=== PATIENT | male | born 1990 | race Caucasian/White ===

== ENCOUNTER 2018-04-04 19:57 | Emergency (ER) | payer OTHER ==
[~2018-04-04] VITALS: Ht 177.8 cm; Wt 96.2 kg
== END 2018-04-04 22:39 | disposition home or self-care (01) ==
LOC: ER 19:57
DX: K52.9 Noninfective gastroenteritis and colitis, unspecified (principal)

== ENCOUNTER → 2021-08-20 | Emergency (ER) | payer OTHER ==
[~2021-08-20] VITALS: Ht 167.6 cm; Wt 89.8 kg
== END | disposition home or self-care (01) ==
LOC: ER 16:02
DX: S61.019A Laceration without foreign body of unspecified thumb without damage to nail, initial encounter (principal); Y92.019 Unspecified place in single-family (private) house as the place of occurrence of the external cause; W26.8XXA Contact with other sharp object(s), not elsewhere classified, initial encounter